=== PATIENT | male | born 1975 ===

== ENCOUNTER 2017-01-13 21:14 | Emergency (ER) | payer OTHER ==
[2017-01-13 22:07] VITALS: TEMP 98.6; O2SAT 97
[2017-01-13] MEDS ORDERED: Morphine 4 MG/ML VIAL ONE (23:07)
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
[2017-01-14] MEDS ORDERED: Bacitracin 500 Units/gm Oint Foilpak UD ONE (01:21)
[2017-01-14 01:50] VITALS: BP 128/76; PULSE 88; RESP 20
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
--- NOTE | 2017-01-14 08:33 | RAD ---
PROCEDURE: HISTORY: injury COMPARISON: None TECHNIQUE: AP view of the pelvis and applicable frog leg views obtained. FINDINGS: Bilateral superolateral acetabular spurring with joint space narrowing here suggested. No fracture noted. The femoral morphologies consistent with femoral acetabular impingement clinical syndromes. Probable transitional elements lumbosacral junction per these images-anomalous articulation with a transitional lateral transverse process with remaining sacrum is questioned abort IMPRESSION: No fracture. Bilateral hip osteoarthrosis. Per femoral morphologies, femoral acetabular impingement possible. Correlate clinically
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
--- NOTE | 2017-01-14 09:18 | CT ---
CT cervical spine History: Injury. Comparison: None available. Technique: Multiple contiguous axial images were performed through the cervical spine without the use of intravenous contrast. Subsequently, sagittal and coronal reformatted images were obtained. This CT exam was performed using one or more of the following dose reduction techniques: Automated exposure control, adjustment of the mA and/or kV according to patient size, and/or use of iterative reconstruction technique. Findings: Multilevel spondylosis with acquired stenosis and facet arthrosis. Mild retrolisthesis of C4 on C5. Multilevel posterior disc osteophyte complexes at the C2-3, C3-4, C4-5, and C5-6 levels. No evidence of acute displaced fracture or dislocation. No prevertebral soft tissue swelling. Periodontal disease. Limited visualization of the lung apices demonstrates paraseptal cysts. An additional 3.5 millimeter noncalcified left upper lobe pulmonary nodule is identified. Heterogeneity of the thyroid gland. Impression: 1. Degenerative changes in the cervical spine including multilevel posterior disc osteophyte complexes as well as minimal retrolisthesis of C4 on C5. 2. 3.5 millimeter left upper lobe pulmonary nodule. Additional paraseptal cysts at the lung apices. If symptoms persists, consider further evaluation with MRI. Six to twelve month interval follow-up chest CT may be helpful to further evaluate the pulmonary nodule if clinically indicated. These findings were preliminarily reported at 12:44 a.m. on 01/14/[address] Tawnya Proctor from [facility].
--- NOTE | 2017-01-14 09:38 | CT ---
CT lumbar spine History: Injury. Comparison: None available. Technique: Multiple contiguous axial images were performed through the lumbar spine without the use of intravenous contrast. Subsequently, sagittal and coronal reformatted images were obtained. This CT exam was performed using one or more of the following dose reduction techniques: Automated exposure control, adjustment of the mA and/or kV according to patient size, and/or use of iterative reconstruction technique. Findings: Rotary scoliosis versus rotated positioning of the lumbar spine. Spondylosis and facet arthrosis. No evidence of acute displaced fracture. Multilevel posterior disc bulges which may be better evaluated with MRI. These are most pronounced at the L3-4 and L4-5 levels. Small sclerotic foci seen within the left iliac bone which may represent a bone island. Punctate left lower lobe nonobstructing renal calculus. Scattered colonic diverticuli. 7 millimeter hypoechoic foci/lesion within the kidney, too small to characterize. Impression: No evidence for acute displaced fracture. Rotary scoliosis versus rotated positioning of the lumbar spine. Spondylosis and facet arthrosis. Multilevel posterior disc bulges which may be better evaluated with MRI. These are most pronounced at the L3-4 and L4-5 levels. If pain persists, consider MRI. Additional findings as above. These findings were preliminarily reported at 12:49 a.m. on 01/14/[address] Tawnya Proctor from [facility].
--- NOTE | 2017-01-14 16:35 | CT ---
CT left knee History: Knee injury. Comparison: None available. Technique: Multiple contiguous axial images were performed through the left knee without the use of intravenous contrast. Subsequently, sagittal and coronal reformatted images were obtained. This CT exam was performed using one or more of the following dose reduction techniques: Automated exposure control, adjustment of the mA and/or kV according to patient size, and/or use of iterative reconstruction technique. Findings: Prominent intra-articular fracture deformity of the lateral proximal tibial plateau extending from the articular surface to the proximal tibial meta diaphysis. Involvement of the superior, anterior, lateral, and posterior cortices. In addition, on series 601, image 70 there appears to be some extension to the posterior medial proximal tibial plateau at the articular surface. Relative patchy area of curvilinear lucency with peripheral sclerosis seen within the lateral femoral condyle at the articular surface at its midportion which is nonspecific. Correlation with MRI may be helpful to exclude osseous injury at this level. Small vertically-oriented lucency at the proximal fibula with some questionable cortical irregularity anteriorly on the sagittal sequences concerning for possible nondisplaced fracture. Correlation with MRI may be helpful. Large suprapatellar lipohemarthrosis. Impression: 1. Prominent intra-articular fracture deformity of the lateral proximal tibial plateau extending from the articular surface to the proximal tibial meta diaphysis. Involvement of the superior, anterior, lateral, and posterior cortices. In addition, on series 601, image 70 there appears to be some extension to the posterior medial proximal tibial plateau at the articular surface. 2. Relative patchy area of curvilinear lucency with peripheral sclerosis seen within the lateral femoral condyle at the articular surface at its midportion which is nonspecific. Correlation with MRI may be helpful to exclude osseous injury at this level. 3. Small vertically-oriented lucency at the proximal fibula with some questionable cortical irregularity anteriorly on the sagittal sequences concerning for possible nondisplaced fracture. Correlation with MRI may be helpful. 4. Large suprapatellar lipohemarthrosis. These findings were preliminarily reported at 2:20 a.m. on 01/14/[address] Tawnya Proctor from [facility].
== END 2017-01-14 03:57 | disposition home or self-care (01) ==
LOC: C.ER 21:14
DX: S82.142A Displaced bicondylar fracture of left tibia, initial encounter for closed fracture (principal); S30.0XXA Contusion of lower back and pelvis, initial encounter; S16.1XXA Strain of muscle, fascia and tendon at neck level, initial encounter; S93.409A Sprain of unspecified ligament of unspecified ankle, initial encounter; Y93.89 Activity, other specified; W11.XXXA Fall on and from ladder, initial encounter; Y92.9 Unspecified place or not applicable
CPT/HCPCS: 72125; 72131; 73521; 73590; 73630; 73700; 96372; 99285; J2270